=== PATIENT | male | born 1950 | race Caucasian/White ===

== ENCOUNTER 2017-01-04 05:19 | Inpatient (IN) | payer OTHER ==
[~2017-01-04] VITALS: Ht 182.9 cm; Wt 102.3 kg
--- NOTE | ~2017-01-04 | ECH ---
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 Summary Technically adequate exam. The estimated left ventricular ejection fraction is 30-35%. Mildly dilated right ventricle with normal function. The left atrium is mildly dilated by LA volume index measurement. Recommendation The patient will be given the results of this study by the physician who ordered the exam. Procedure Type of Study TTE procedure:Echo Complete SF. Procedure Date Date: 01/04/2017 Start: 12:29 PM Technical Quality: Adequate visualization Indications:Atrial fibrillation and Congestive heart failure. Appropriate Use Criteria: 9 Height: 72 inches Weight: 214 pounds BSA: 2.19 m Rhythm: Within normal limits HR: 87 bpm BP: 130/70 mmHg M-Mode/2D Measurements LV Diastolic Dimension: 5.45 cm LV Systolic Dimension: 3.83 cm LV Septum Diastolic: 0.75 cm LV PW Diastolic: 0.78 cm AO Root Dimension: 2.74 cm Cardiac Output: 5.89 l/min LA Dimension: 5.04 cm Cardiac Index: 2.69 l/min*m RV Diastolic Dimension: 2.94 cm LA volume index: 38 ml/m LVOT: 2.16 cm LVOT VTI: 18.48 cm RV Base: 4.2 cm LV Stroke volume: 67.68 ml RV Mid: 3.7 cm LV Stroke volume index: 30.9 ml/m TAPSE: 2.1 cm TDI-S': 11 cm/s Doppler Measurements AV Peak Velocity: 1.1 m/s MV Peak E-Wave: 1.17 m/s AV Peak Gradient: 4.84 mmHg MV Peak A-Wave: 0.62 m/s AV Mean Gradient: 3.33 mmHg MV E/A Ratio: 1.9 LVOT Peak Velocity: 1.01 m/s MV P1/2t: 53.3 msec AV Area (Continuity):3.09 cm MV Deceleration Time: 178.2 msec TR Velocity:2.43 m/s MV Area (PHT): 4.13 cm TR Gradient:23.66 mmHg PV Peak Velocity: 0.79 m/s Estimated RAP:3 mmHg PV Peak Gradient: 2.51 mmHg Estimated RVSP: 27 mmHg Estimated PASP: 26.66 mmHg E' Septal Velocity: 0.05 m/s A' Septal Velocity: 0.07 m/s E' Lateral Velocity: 0.11 m/s A' Lateral Velocity: 0.09 m/s RA Area: 17.13 cm Findings Left Ventricle The left ventricle is normal in size . Diastolic assessment reveals normal relaxation. Right Ventricle Mildly dilated right ventricle with normal function. Left Atrium The left atrium is mildly dilated by LA volume index measurement. Right Atrium Normal right atrial size. Mitral Valve Normal mitral valve structure and function. Trivial mitral regurgitation by color Doppler. Aortic Valve The aortic valve is moderately sclerotic. Tricuspid Valve Normal tricuspid valve structure and function. Trivial tricuspid regurgitation by color Doppler. Normal pulmonary pressures. Pulmonic Valve The pulmonic valve is not well visualized. Pericardial Effusion No evidence of pericardial effusion. Miscellaneous Visualized portions of the aortic root and ascending aorta appear normal in size. Pleural Effusion No evidence of pleural effusion. Contractility Score LV regional wall motion:(0-Non visualized 1-Normal 2-Hypokinesis 3-Akinesis 4-Dyskinesis 5-Aneurysm) Signature
--- NOTE | 2017-01-04 14:49 | HP ---
ADMIT: 01/04/2017 RM/LOC: 302 [facility] MR#: [id number] [address] [place], [place] [address] ESTEFANI BROWN [address] [place] [address] History and Physical SEX: M AGE: 66 : 1950 DATE OF SERVICE: CHIEF COMPLAINT: Shortness of breath. HISTORY OF PRESENT ILLNESS: This is a 66-year-old gentleman, no known past medical history, presented to hospital with shortness of breath. He was found to be in atrial fibrillation with RVR. Two doses of adenosine did not convert; he was given diltiazem and then metoprolol, he did convert. He needed high amounts of oxygen and BiPAP in the emergency room. Ultimately, had persistent respiratory acidosis with worsening of his pCO2 despite BiPAP, so he was intubated. He is currently 94% on 100% FiO2 with 10 of PEEP. No other history could be obtained. Attempts to reach his family on the number we have has been unsuccessful. The patient could really give no meaningful history and is currently intubated and sedated. We did have a CT of his chest which did not show a clot, but did show extensive bilateral consolidative and ground-glass opacities, most pronounced on the right. He also has bilateral pleural effusions. There is a question of whether this looked like aspiration pneumonia. PAST MEDICAL HISTORY: Unobtainable. SOCIAL HISTORY: Unobtainable. FAMILY HISTORY: Unobtainable. REVIEW OF SYSTEMS: Unobtainable. PHYSICAL EXAMINATION: VITAL SIGNS: Blood pressure is 105/50, pulse 71, respirations 24, breathing over the vent. He is 94% on 100% FiO2 and 10 of PEEP right now, on PRVC mode. He is sedated with Versed, still is moving his head at times, has some coughs, is able to move all extremities independently. HEENT: Pupils are equally round, reactive to light and accommodation. Extraocular muscles cannot be tested. Throat, he has an ET tube in place and an OG in place as well. HEART: Regular rate and rhythm. LUNGS: Diminished severely bilaterally. ABDOMEN: Soft, without any tenderness. EXTREMITIES: His lower extremities have no edema. NEURO: His cranial nerves could not be tested. SKIN: He has little extra rubor to his face. MUSCULOSKELETAL: Does appear he can move his extremities equally bilaterally. LABORATORY AND X-RAY DATA: Again, the CT scan showed extensive consolidative opacities bilaterally. Urine showed 1+ protein. Last ABG showed a pH of 7.07, pCO2 of 83.5, and PO2 of 65. CBC showed a white count of 33.4, hemoglobin of 20.5, platelets of 859. Eosinophil count was 1.3, upper limit of normal is 0.5. Procalcitonin 0.09. CMP; glucose of 268. Creatinine of 1.4. Phosphorus is 7.6. Alkaline phosphatase 144, AST 69. Sodium 139, potassium 4.6, chloride 106. Troponin is 0.029. CK is 92, MB is 5.2%. INR ADMIT: 01/04/2017 RM/LOC: 302 [facility] MR#: [id number] [facility] [address] [address] STEPHANIE ESTEFANI A [address] [place] [address] History and Physical SEX: M AGE: 66 : 1950 is 1.82. Lactic acid 4.1, repeat has not been done yet. ASSESSMENT: 1. Respiratory failure, which is hypercarbic and hypoxic in nature. 2. Atrial fibrillation/supraventricular tachycardia with rapid ventricular rate. 3. Acute systolic congestive heart failure. 4. Respiratory acidosis. 5. Elevated liver function tests. 6. Elevated white count, hemoglobin, and platelets. 7. Coagulopathy with elevated INR. 8. Hyperglycemia. 9. Aspiration pneumonia. PLAN: He is admitted to the hospital. Treated with vancomycin, azithromycin, and Zosyn for his pneumonia. Give him IV steroids. We will get an echo. Trend his troponin. We will get an abdominal ultrasound to evaluate his elevated LFTs, vitamin K level, and A1c. Urine drug screen. Alcohol level. Hematology consult. X-ray. He has a central line with likely a PICC and art line. We will need to follow serial ABGs. We will also follow his lactic acid closely as well. He has already been given some IV diuretics early this morning, we will follow him and see how he does with that. His NG will be at a low intermittent suction for now to assure he does not aspirate anymore, and we will wean his ventilator as able. Nicola Morgan MD/ logan JOB #: [id number] CC: Nicola Morgan, Attending Physician Nicola Morgan, Family Physician
--- NOTE | 2017-01-09 07:55 | ER ---
ADMIT: 01/04/2017 RM/LOC: 302 [facility] MR#: [id number] [address] [facility] [address] [place], [place] [address] ESTEFANI BROWN [address] [place] [address] Emergency Room Report SEX: M AGE: 66 : 1950 DATE: 01/04/2017 CHIEF COMPLAINT: Short of breath. HISTORY OF PRESENT ILLNESS: The patient is a 66-year-old male, otherwise healthy, who was brought in by EMS for acute onset shortness of breath a couple hours ago. The patient is not able to provide a good history because he is so short of breath. He does deny any chest pain at this time and other than short of breath, he states he had not been having any problems until recently. He has no history of any COPD or lung problems and no cardiac history or arrhythmias. He denies any history of blood clots. REVIEW OF SYSTEMS: Unable to obtain a thorough review of systems due to the patient's severe shortness of breath. PAST MEDICAL HISTORY: The patient denies any medical problems. MEDICATIONS: The patient denies. ALLERGIES: NONE. SOCIAL HISTORY: The patient denies any history of smoking. PHYSICAL EXAMINATION: GENERAL: The patient is in acute distress when he arrives. HEENT: Head is atraumatic. The patient is diaphoretic. He is cyanotic with mottling of his skin primarily on his nose, lips, ears, and below his nipple line on his torso. CHEST: He has significantly decreased breath sounds in both lung recio, and he is tachycardic. EXTREMITIES: The patient can move all extremities. He has no pedal edema that is noted. No calf tenderness. No skin lesions or rashes are noted other than his cyanosis and diaphoresis. Initial EKG shows atrial fibrillation RVR with some T-wave depression. Chest x-ray shows CHF. LABORATORY DATA: White count of 33.4, hemoglobin 20.5, platelets 859. Chemistries showed normal electrolytes. His glucose is 268, serum creatinine is 1.4, cardiac enzymes are negative x1. Lactic acid is 4.1. Urinalysis is unremarkable. ABG initial pH 7.03 and repeat is 7.07. Initial pCO2 of 77 with a repeat of 83.5, and initial PO2 of 64 with repeat is 65. ED COURSE: The patient presented he was in extremis. We went ahead and got an EKG, which showed atrial fibrillation RVR, and he was given Cardizem 10 mg IV, which did not really have any effect. He was then given Lopressor 5 mg IV and his heart rate improved and his blood pressure got better. The patient did appear more relaxed with that. He was placed on BiPAP. He was given an additional dose of Lopressor 5 mg IV and 40 mg of Lasix while in the ER. He did seem to be doing better for a short period time and then he had worsening ADMIT: 01/04/2017 RM/LOC: 302 [facility] MR#: [id number] [address] [place] [id number] ESTEFANI BROWN [address] [place] [address] Emergency Room Report SEX: M AGE: 66 : 1950 problems keeping his sats up. He did appear more agitated and decided to go ahead and intubate the patient. He was intubated using RSI with 20 of etomidate and 100 of succs. I did visualize the tube passing the cords, and he had good chest rise with breath sounds. We got good color change on his CO2 monitor. When he was started on a Versed drip, and was given Levaquin IV in the emergency department. Despite being intubated, we does have difficulty maintaining his oxygen saturation. The patient was given a dose of IV heparin in the emergency department per our possible PE protocol, and the patient will go to CT angio of his chest on the way up to the ICU. He does not report having a physician, so he was given to Dr. Morgan for city call. The patient is admitted with diagnoses of: 1. Flash pulmonary edema. 2. Congestive heart failure. 3. Hypoxemia. 4. Possible pulmonary embolus. 5. Possible pneumonia. A total of 2 hours of critical care time was spent on this patient. Vickey Yost MD/ logan JOB #: [id number] CC: Nicola Morgan MD, Attending Physician Nicola Morgan MD, Family Physician
--- NOTE | 2017-01-09 10:30 | CO ---
ADMIT: 01/04/2017 RM/LOC: 302 [facility] MR#: [id number] [address] [facility] [address] [place] [phone] ESTEFANI BROWN [address] [place] [address] Consultation SEX: M AGE: 66 : 1950 DATE OF CONSULTATION: 01/04/2017 ATTENDING PHYSICIAN: Nicola Morgan CONSULTING PHYSICIAN: Ilan Forrest MD REASON FOR CONSULT: Elevated troponin. Jaye Hall RN, scribing for Dr. Ilan Forrest. HISTORY OF PRESENT ILLNESS: Cirilo is a 66-year-old gentleman, I have been asked to see in Cardiology consultation for elevated troponin. He is currently intubated and sedated, so history is obtained through his . He has no documented history of coronary artery disease and does not follow with any physician, so there are no other chronic illness diagnoses. He does have history of tobacco use and his reports that he quit smoking about five weeks ago. He is a very active individual normally and works at [employer] from 5:00 a.m. to 9:00 a.m. 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 He last night was feeling great. He was at a birthday republican, and earlier this week he was mowing the lawn without any difficulty. Cirilo presented to [facility] this morning early by ambulance with severe shortness of breath. He was at work at [employer] this morning. His stated that he had no complaints, he went to work. When he was there apparently he was having increased shortness of breath to the point where EMS was called. In the ambulance, an EKG demonstrated irregular fast rhythm. There was a question of what the rhythm was per the EMS, so they had given him adenosine x2, but he continued to have atrial fibrillation with RVR. He was given diltiazem and metoprolol in the emergency room resulting in converting to sinus rhythm. He has maintained sinus rhythm since that time. He was having issues with hypoxia and elevated pCO2 on ABGs despite BiPAP and so, he was intubated. He continues to be intubated and is stable. CT of his chest was negative for pulmonary embolism. He did have elevated hemoglobin at 20.5, hematocrit of 63.1, white count of 33.4, and platelets of 859. He is being phlebotomized for that. He is being followed by Oncology. Cardiac enzymes were checked. His initial set showed CK of 92, MB of 5.2, and troponin 0.029. Repeat set showed CK of 142, MB of 13.7, and troponin of 1.12. EKG did not show any significant ST to T changes consistent with ischemia. Vital signs are stable. He is afebrile. PAST MEDICAL HISTORY: Former tobacco use, quitting five weeks ago. PAST SURGICAL HISTORY: He had history of subdural hematoma in 1988 after falling 15 feet and hitting his head, requiring surgery for that. He also had a spontaneous pneumo in 2003 requiring chest tube placement. ALLERGIES: NO KNOWN MEDICATION ALLERGIES. MEDICATIONS: Current medications include: 1. Hydrea 1000 mg daily. ADMIT: 01/04/2017 RM/LOC: 302 [facility] MR#: [id number] [address] [place] [id number] ESTEFANI BROWN [address] [place] [address] Consultation SEX: M AGE: 66 : 1950 2. DuoNeb q.4 hours. 3. Lovenox 40 subcutaneous daily. 4. NovoLog before meals and at bedtime. 5. Solu-Medrol 125 IV q.6 hours. 6. Vancomycin 1.5 g IV q.12 hours. 7. Zosyn 3.375 g q.8 hours IV. 8. Zithromax 500 mg IV q.24 hours. FAMILY HISTORY: No family history of coronary artery disease. SOCIAL HISTORY: Cirilo is . He lives at home with his . He works at [employer]. His reports he drinks lots of coffee. He quit smoking after smoking two packs a day since the age of 18 about five weeks ago. No alcohol or drug use. REVIEW OF SYSTEMS: Unobtainable due to patient intubation and sedation. PHYSICAL EXAMINATION: VITAL SIGNS: Blood pressure 107/51, heart rate 91, respirations 23, temperature 97.1, and oxygenation 89% on O2. GENERAL: Sedated on the ventilator. SKIN: [place], warm and dry. EYES: Sclerae clear. No xanthelasmas. ENT: Oral mucosa is pink and moist. No jugular venous distention or carotid bruits. CHEST: Respirations are even and unlabored. Lungs, decreased breath sounds bilaterally. HEART: Regular rate and rhythm. Normal S1, S2. No murmurs, rubs or gallops. ABDOMEN: Soft and nontender. MUSCULOSKELETAL: Gait is normal. EXTREMITIES: Peripheral pulses palpable. No clubbing, cyanosis or edema. PSYCHIATRIC: Alert and oriented. Mood and affect are appropriate. DIAGNOSTIC DATA: CTA of chest on 01/04 was negative for PE. Chest x-ray showed intubated, extensive bilateral interstitial opacities. Echo on 01/04/2017 showed EF of 30% to 35% with mild left atrial enlargement. Sodium 139, potassium 4.6, BUN 24, creatinine 1.4, glucose 268, AST 69, ALT 47, and magnesium 2.4. INR is 1.82. White blood cell count 33.4, hemoglobin 20.5, hematocrit 63.1, and platelets 859. CK 142, MB 13.7, and troponin 1.12. ASSESSMENT AND PLAN: 1. Respiratory failure. 2. Decreased ejection fraction. 3. Paroxysmal atrial fibrillation. 4. Mild troponin elevation. 5. Erythrocytosis. I am unsure at the moment if his elevated troponin is a supply or demand ischemia. He will need ischemic evaluation when he is more stable. He did ADMIT: 01/04/2017 RM/LOC: 302 [facility] MR#: [id number] [address] [place] [address] [place] [address] ESTEFANI BROWN [address] [place] [address] Consultation SEX: M AGE: 66 : 1950 have brief episode of atrial fibrillation, but continues to be in normal sinus rhythm. I believe this is likely due to acute illness. His ejection fraction is around 30% to 35%. He will need further evaluation if this does not improve. With his lack of previous healthcare, it could be any number of problems causing this. I will continue to follow cardiac enzymes and recheck EKG in morning. I have read and agree with the documentation that has been completed regarding this visit. By signing this record, I attest that the documentation was completed in my physical presence and is an accurate record of the encounter. Thank you for the consultation. Jaye Hall RN / Ilan Forrest MD / logan JOB #: [id number] CC: Nicola Morgan, Attending Physician Nicola Morgan, Family Physician
[2017-01-09] MEDS ORDERED: ELIQUIS5 MG PO (10:46)
[2017-01-09] MEDS ORDERED: ZESTORETIC 20/11 TAB PO (10:46)
[2017-01-09] MEDS ORDERED: ASA325 MG PO (10:46)
[2017-01-09] MEDS ORDERED: HYDREA DPS500 MG PO (10:46)
[2017-01-09] MEDS ORDERED: TOPROL XL DPS50 MG PO (10:46)
[2017-01-09] MEDS ORDERED: SPIRIVA18 MCG IH (10:47)
[2017-01-09] MEDS ORDERED: CORDARONE DPS200 MG PO (10:47)
[2017-01-09] MEDS ORDERED: AUGMENTIN 250250 MG PO (10:47)
--- NOTE | 2017-01-27 08:54 | DS ---
ADMIT: 01/04/2017 RM/LOC: 412 [facility] MR#: [id number] [address] [address] ESTEFANI BROWN [address] [place] [address] General Discharge Summary SEX: M AGE: 66 : 1950 ADMISSION DATE: 01/04/2017 DISCHARGE DATE: 01/08/2017 FINAL DIAGNOSES: 1. Atrial fibrillation with rapid ventricular response. 2. Acute hypoxic respiratory failure. 3. Elevated white count, hemoglobin, and platelets. Possible polycythemia. 4. Possible myeloproliferative disorder. 5. Cardiomyopathy. 6. Anticoagulation. 7. Chronic obstructive pulmonary disease. REASON FOR ADMISSION: This is a 66-year-old gentleman who presented to the emergency room because of severe weakness and shortness of breath. See H and P for further details. HOSPITAL COURSE: The patient was admitted, initially put on BiPAP, he failed, then ultimately needed to get intubated. He was placed on broad-spectrum antibiotics. He had a CT PICC placed and an art line placed. Oncology was consulted and recommended daily phlebotomy which was done as well as other testing. His cardiac enzymes were monitored closely. He was given rectal aspirin because of elevated troponin. Ultimately, he had some atrial fibrillation with RVR and was put on amiodarone. He was doing much better overall from a pulmonary standpoint by the and he was extubated. He had a bone marrow biopsy on the . Steroids were weaned and antibiotics tapered as well. He was switched to oral amiodarone by the after his procedure, was doing okay, and so was planned to discharge home with some home health care. See orders for further details. DISCHARGE MEDICATIONS: ADMIT: 01/04/2017 RM/LOC: 412 [facility] MR#: [id number] 26[address] [facility] [address] [place] [phone] ESTEFANI BROWN [address] [place] [address] General Discharge Summary SEX: M AGE: 66 : 1950 1. Aspirin 325 mg daily. 2. Lisinopril 10 mg daily. 3. Toprol-XL 50 mg daily. 4. Hydrea 1000 mg daily. 5. Amiodarone 400 mg b.i.d. for a week, then 400 mg daily for a week, then 200 mg daily after that. 6. He will be on Eliquis 5 mg b.i.d. and Augmentin 875 b.i.d. for six days, Spiriva 1 puff daily after that. DIET: Regular diet. FOLLOWUP: Follow up with me in 1 week's time. Nicola Morgan MD/ logan JOB #: [id number] CC: Nicola Morgan MD, Attending Physician Nicola Morgan MD, Family Physician
--- NOTE | 2017-01-30 08:15 | CO ---
ADMIT: 01/04/2017 RM/LOC: [address] [facility] MR#: [id number] [address] [facility] [address] [place], [place] [id number] ESTEFANI BROWN [address] [place] [address] Consultation SEX: M AGE: 66 : 1950 DATE OF CONSULTATION: 01/04/2017 ATTENDING PHYSICIAN: Nicola Morgan MD CONSULTING PHYSICIAN: Vincent Marquez MD REASON FOR CONSULTATION: Elevated blood counts. HISTORY OF PRESENT ILLNESS: The patient is a 66-year-old male, who this morning at work had spontaneous onset of shortness of breath that led to 911 and ambulance evaluation. He was brought to the emergency room and suddenly decompensated from a respiratory standpoint and was intubated. Very little history was obtainable at that point. On his blood count evaluation, he surprisingly was found to have a white count of 33, hemoglobin 20, hematocrit of 63, and platelet count 859. PT was elevated at 19 and PTT was also elevated at 39. He does have what appears to be pneumonia, which is being treated with broad-spectrum antibiotic coverage. The rest of his organ systems are essentially normal. I have not talked with the family and they state that he has basically been feeling fine from their reports and that they were shocked that this occurred today. He really had no unusual symptoms in recent days. They do notice that he has maybe lost a little bit of weight and been a bit more fatigued recently. He clearly has some redness of his face and they state that this has been very longstanding. He is a nonsmoker, but has smoked in the past. He does not abuse alcohol. His notes that he does seem to snore a lot, but she has never noticed any apneic spells. PAST MEDICAL HISTORY: The patient has basically not seen a doctor in 25 years and no known chronic medical illnesses. MEDICATIONS: The patient was on no medications at home. ALLERGIES: NO KNOWN DRUG ALLERGIES. FAMILY HISTORY: His family reports no known blood disorders or leukemias in the family. SOCIAL HISTORY: The patient works at [employer]. He has a very supportive family. He is and is a nonsmoker and does not abuse alcohol. PHYSICAL EXAMINATION: VITAL SIGNS: Temp 98, pulse 91, respirations 25, and blood pressure 115/57. GENERAL: The patient is intubated and unable to provide me any history. HEENT: Oral exam was not obtainable. Pupils are reactive and symmetrical. NECK: Without a JVD or any carotid bruits. HEART: Regular rate and rhythm without murmur. LUNGS: Clear to auscultation bilaterally without any crackles or wheezes. ABDOMEN: Soft and nontender with positive bowel sounds throughout. No organomegaly is appreciated. EXTREMITIES: No edema is appreciated. No adenopathy is felt. He certainly ADMIT: 01/04/2017 RM/LOC: [address] [facility] MR#: [id number] [address] [place] [id number] ESTEFANI BROWN [address] [place] [address] Consultation SEX: M AGE: 66 : 1950 does have some redness of his face and extremities. Most striking is the dark redness of his ears. LABS: Again, white count 33, hemoglobin 20, hematocrit 63, and platelets 859. Imaging of his abdomen shows a spleen that is somewhat enlarged now to. IMPRESSION: 1. Obvious myeloproliferative disorder most likely a polycythemia vera with significant elevation of his blood counts. 2. Respiratory failure of unknown cause, likely from pneumonia. Recommendations, the patient needs aggressive intervention with removal of blood from circulation to help with his blood flow. He has mild troponin elevation concerning for some ongoing cardiac ischemia possibly from his inefficient blood flow. It is unclear if he has had some mental status changes as well from his inefficient blood flow. I would recommend 500 mL of phlebotomy now and again later today and then on a daily basis until we achieve a hematocrit around 45 or less. I will also initiate hydroxyurea at a 1000 mg daily and closely monitor his blood counts. He needs a bone marrow biopsy once he has stabilized and is off the ventilator. I will certainly follow closely thereafter to manage these blood issues. His coagulation studies were also abnormal. I will give him a dose of vitamin K to help control that and check several factor levels and mixing studies. I will replace his factors if needed. I appreciate this consultation on this interesting case. Vincent Marquez MD/ logan JOB #: [id number] CC: Nicola Morgan MD, Attending Physician Nicola Morgan MD, Family Physician
== END 2017-01-08 12:45 | disposition home or self-care (01) | DRG 208 ==
LOC: ER 05:19 → 3ICU 07:10 → 4PCU 01-07 14:51
PROVIDERS: ADMIT Internal Medicine
PROC: 5A1945Z Respiratory Ventilation, 24-96 Consecutive Hours (ICD-10-PCS; principal; 2017-01-04)
PROC: 03HY32Z Insertion of Monitoring Device into Upper Artery, Percutaneous Approach (ICD-10-PCS; 2017-01-04)
PROC: 02HV33Z Insertion of Infusion Device into Superior Vena Cava, Percutaneous Approach (ICD-10-PCS; 2017-01-04)
PROC: 3E0G76Z Introduction of Nutritional Substance into Upper GI, Via Natural or Artificial Opening (ICD-10-PCS; 2017-01-05)
PROC: 07DR3ZX Extraction of Iliac Bone Marrow, Percutaneous Approach, Diagnostic (ICD-10-PCS; 2017-01-07)
DX: J96.91 Respiratory failure, unspecified with hypoxia (principal); J81.0 Acute pulmonary edema; J69.0 Pneumonitis due to inhalation of food and vomit; I50.41 Acute combined systolic (congestive) and diastolic (congestive) heart failure; E87.2 Acidosis; I24.8 Other forms of acute ischemic heart disease; D68.9 Coagulation defect, unspecified; C94.6 Myelodysplastic disease, not elsewhere classified; I42.9 Cardiomyopathy, unspecified; I47.1 Supraventricular tachycardia; J96.92 Respiratory failure, unspecified with hypercapnia; D75.1 Secondary polycythemia; D45 Polycythemia vera; I50.9 Heart failure, unspecified; I48.0 Paroxysmal atrial fibrillation; R79.89 Other specified abnormal findings of blood chemistry; R73.9 Hyperglycemia, unspecified; Z87.891 Personal history of nicotine dependence

== ENCOUNTER 2017-01-13 22:34 | Emergency (ER) | payer OTHER ==
[~2017-01-13 22:34] MED LIST: ASA325 MG PO; AUGMENTIN 250250 MG PO; CORDARONE DPS200 MG PO; ELIQUIS5 MG PO; HYDREA DPS500 MG PO; SPIRIVA18 MCG IH; TOPROL XL DPS50 MG PO; ZESTORETIC 20/11 TAB PO
--- NOTE | 2017-01-14 03:25 | ER ---
ADMIT: 01/13/2017 RM/LOC: ER [facility] MR#: [id number] 26[address] [facility] [address] [place], [place] [address] ESTEFANI BROWN [address] [place] [address] Emergency Room Report SEX: M AGE: 66 : 1950 DATE: 01/13/2017 Patient is a 66-year-old male with yet to be diagnosed coagulopathy. Discharged from hospital after respiratory failure/pulmonary edema, pneumonia, currently on Eliquis, aspirin 325 mg daily, and hydroxyurea. The patient's WBC and hemoglobin have diminished significantly as has platelets currently at 915. INR slightly elevated at 1.19. PT 12.4, PTT 34.1. Discussed case with Dr. Morgan, who recommends decreasing aspirin 81 mg daily. The patient was concerned because he had a friend, who of anticoagulant toxicity when he bled to . Patient was helping mow the grass with minimal activity and noted contusions on his inner forearms. He has denied any hematuria, hematochezia, or shortness of breath. Jaun Ruiz MD/ logan JOB #: [id number] CC: Jaun Ruiz MD, Attending Physician Nicola Morgan MD, Family Physician MD Vincent Mata MD
== END 2017-01-14 00:15 | disposition home or self-care (01) ==
LOC: ER 22:34
DX: S50.12XA Contusion of left forearm, initial encounter (principal); S50.11XA Contusion of right forearm, initial encounter; D68.9 Coagulation defect, unspecified; I11.0 Hypertensive heart disease with heart failure; I50.9 Heart failure, unspecified; J44.9 Chronic obstructive pulmonary disease, unspecified; Z79.82 Long term (current) use of aspirin; Z87.891 Personal history of nicotine dependence; Z79.01 Long term (current) use of anticoagulants; Z79.899 Other long term (current) drug therapy

== ENCOUNTER 2017-02-04 06:01 | Day surgery (SDC) | payer OTHER ==
[~2017-02-04] VITALS: Ht 170.2 cm; Wt 96.0 kg
--- NOTE | ~2017-02-04 | CATH ---
Cardiac Diagnostic Report Demographics Patient Name STEPHANIE Schofield Gender Male Date of 1950 Age 66 year(s) Patient Number [id number] Date of Study 02/04/2017 Visit Number [id number] Room Number Corporate ID Ht 170.18 cm Wt 98.88 kg Accession Number [id number] BSA 2.1 m kg/m Referring Brett HOLLAND Primary Physician Physician Melquiades Garibay MD Performing Brett HOLLAND Secondary Physician Physician Melquiades Diagnostic Brett HOLLAND Assisting Physician Physician Melquiades Interventional Brett HOLLAND Physician Para Professional Physician Melquiades Findings and Conclusions Diagnostic Findings and Conclusion 1. Normal Coronary arteries. Diagnostic Recommendations 1. Medical management. Procedure Description The patient was brought to the diagnostic cardiac catheterization- laboratory in the fasting, non-sedated state. Informed consent was obtained in the written and verbal form after the risks and benefits were explained. The patient had no further questions and agreed to proceed. The planned puncture-incision site(s) were shaved and prepped with ChloraPrep and draped in the usual sterile manner. Conscious sedation, supplemental oxygen, and pain control medications were delivered by a registered nurse under physician guidance. Surface ECG rhythm, blood pressure measurement, and pulse oximetry were monitored throughout the procedure. Arterial access. The right radial access site was infiltrated with lidocaine. The vessel was entered with the Seldinger technique. A 6F sheath was advanced into the vessel and used for catheter placement. Selective left coronary angiography. A TIG catheter was advanced into the left coronary vessel ostium under Fluoroscopic guidance. Contrast was injected by hand. Images were obtained in multiple projections. Selective right coronary angiography. A TIG catheter was advanced into the right coronary vessel ostium under fluoroscopic guidance. Contrast was injected by hand. Images were obtained in multiple projections. Left heart catheterization with ventriculography. A Pigtail catheter was advanced across the aortic valve to the left ventricle under fluoroscopic guidance. Resting hemodynamics were obtained. With the catheter at the left ventricular apex, contrast was injected. Images were obtained in TAMAR projections. Post-ventriculography LV pressure was obtained. The catheter was gradually withdrawn into the aorta with continuous pressure recording. Arterial artery hemostasis was achieved with TR band. The patient was transferred to a regular nursing floor via cart accompanied by a nurse. The patient left the laboratory in stable condition. Diagnostic Cath Status: Elective Procedure Procedure Type Diagnostic procedure:Angiography:, Coronary Angios w/LHC Indications: Tobacco use-prior, Hypertension, Cardiomyopathy, Atrial fibrillation and Elevated Troponin. The procedure was explained in detail to the patient. Risks, complications and alternative treatments were reviewed. Written consent was obtained. Medications Reviewed with Patient prior to Procedure. Complications: No Complication. Angiographic Findings Dominance: Left Cardiac Arteries and Lesion Findings LMCA: Normal (0% Stenosis). LAD: Normal (0% Stenosis). LCx: Normal (0% Stenosis). RCA: Normal (0% Stenosis). Procedure Data Procedure Date Date: 02/04/2017Start: 07:58 Entry Locations - Percutaneous access was performed through the Right Radial artery (Primary location). A 6 Fr sheath was inserted. Hemostasis was successfully obtained using a TR band. Procedure Medications Order and Administration + + +---------+--------+ !Time !Medication !Dosage !Route ! + + +---------+--------+ !02/04/2017 08:00 !Versed !2 mg ! ! + + +---------+--------+ !02/04/2017 08:00 !Fentanyl !50 mcg !I.V. ! + + +---------+--------+ !02/04/2017 08:01 !Sodium Chloride !10 ml !I.V. ! + + +---------+--------+ !02/04/2017 08:08 !Oxygen !2 l/min !NC ! + + +---------+--------+ Devices Used - A6F TIG CATHETERwas used for:Coronary Angios. - ACATH 6FR PIG 145 110CM CATHETERwas used for:LV Pressures. Contrast Material - Isovue 34244 ml Fluoroscopy Time: Diagnostic: 1:42 minutes. Total: 1:42 minutes. Fluoroscopy Dose: Diagnostic: 519 mGy. Total: 519 mGy. Estimated Blood Loss: 9 ml. Medical History Allergies - No known allergies. Risk Factors The patient risk factors include:treated hypertension, last creatinine: 0.9 mg/dl, creatinine clearance: 115.97 ml/min and former tobacco use. Admission Data Admission Date: 02/04/2017 Admission Time: 06:01 Insurance Payors: None. Clinical Evaluation Leading to Procedure Diagnosed on 01/25/2017 03:00 . - The reason for the patient's operations label clerk visit is evaluation of cardiomyopathy and/or evaluation of left ventricular systolic dysfunction. Hemodynamics Condition: Rest O2 Consumption: Estimated: 224.90Heart Rate: 44 bpm Pressures (mmHg) +-----+ + !Site !Pressure ! +-----+ + !AO !115/45 (71) ! +-----+ + !LV !123/1 ,9 ! +-----+ + !AO !126/46 (75) ! +-----+ + !LV !123/1 ,9 ! +-----+ + Valve Gradients and Areas + +---------+---------+---------+ +---------+ + !Valve !Peak !Mean !Area !Index !Flow !Source ! + +---------+---------+---------+ +---------+ + !Aortic !0 !0 ! ! ! ! ! + +---------+---------+---------+ +---------+ + !Aortic !0 !0 ! ! ! ! ! + +---------+---------+---------+ +---------+ + Shunts Oxygen Values O2 Capacity 208.08 O2 Consumption 224.9 Signatures
== END 2017-02-04 11:44 | disposition home or self-care (01) ==
LOC: SSS 06:01
PROC: 4A023N7 Measurement of Cardiac Sampling and Pressure, Left Heart, Percutaneous Approach (ICD-10-PCS; principal; 2017-02-04)
DX: I42.9 Cardiomyopathy, unspecified (principal); I48.0 Paroxysmal atrial fibrillation; I10 Essential (primary) hypertension; R74.8 Abnormal levels of other serum enzymes; Z87.891 Personal history of nicotine dependence; Z79.899 Other long term (current) drug therapy; Z79.82 Long term (current) use of aspirin